=== PATIENT | female | born 1985 | race Caucasian/White ===

== ENCOUNTER 2017-09-27 15:17 | Emergency (ER) | payer OTHER ==
[~2017-09-27] VITALS: Ht 175.3 cm; Wt 136.4 kg
[~2017-09-27 15:17] MED LIST: MEDR150I; TRAM-453 PO; XRL15 PO
[2017-09-27 15:28] VITALS: TEMP 36.9; Ht 175.3 cm; Wt 136.4 kg
[2017-09-27] MEDS ORDERED: XRL20 PO (15:50)
[2017-09-27] MEDS ORDERED: SERT50TA PO (15:50)
[2017-09-27] MEDS ORDERED: OPTIRAY 320 IV PRN (16:00)
--- NOTE | 2017-09-27 16:07 | EMERGENCY ROOM VISIT NOTE ---
History First contact with patient: 15:39 Chief Complaint: OTHER COMPLAINT Stated Complaint: POSSIBLE BLOOD CLOT, REFERRED BY History of Present Illness The patient is a 32 year old female who presents to the Emergency Room with complaints of chest pain. The patient reports that she has had tenderness in the middle of her chest for over one year which worsened and became more frequent recently. She states that there is pain with certain movements and pushing on the area. It is typically intermittent but has become more constant over the past few weeks. She is concerned because of a history of blood clots. The patient reports factor V Leiden disorder and has a history of both blood clots in her legs and lungs. She takes Xarelto every day. She does report that in the past, she has had a pulmonary embolism while taking Coumadin. She also reports being more fatigued than normal recently. She contacted her primary care provider who recommended that she come here for a CT scan of her chest given her history. The patient denies any shortness of breath, cough or fevers. She is not a smoker. She denies recent travel or surgeries. Review of Systems A complete 10 point review of systems was reviewed with the patient with pertinent positives and negatives as per history of present illness. All else were negative. Past Medical/Surgical History Medical Problems: (1) Anxiety and depression (2) Heterozygous factor V Leiden mutation (3) Pulmonary embolism (4) Superficial thrombophlebitis Surgical Problems: (1) S/P wrist surgery Family History FH: pulmonary embolism BROTHER Phlebitis FATHER MOTHER Social History Smoking Status: Never Smoker Alcohol Use: none Drug Use: none Marital Status: Housing Status: lives with family Occupation Status: unemployed Current/Historical Medications Scheduled Rivaroxaban (Xarelto), 20 MG PO QPM Sertraline (Zoloft), 75 MG PO QAM Physical Exam Vital Signs Date Time Temp Pulse Resp B/P (MAP) Pulse Ox O2 Delivery O2 Flow Rate FiO2 09/27/17 18:14 80 18 138/96 100 Room Air 09/27/17 15:28 36.9 89 20 148/92 98 Room Air Physical Exam VITALS: Vitals are noted on the nurse's note and reviewed by myself. Vital signs stable. GENERAL: This is a 32-year-old female, in no acute distress, nondiaphoretic, well-developed well-nourished. SKIN: The skin was without rashes. EARS: External auditory canals clear, tympanic membranes pearly victoria without erythema or effusion bilaterally. EYES: Pupils equal round and reactive to light and accommodation. MOUTH: Mucous membranes moist. NECK: Supple without nuchal rigidity. HEART: Regular rate and rhythm without murmurs gallops or rubs. LUNGS: Clear to auscultation bilaterally without wheezes, rales or rhonchi. No retractions or accessory muscle use. MUSCULOSKELETAL: Slight tenderness to palpation along left sternal border. NEURO: Patient was alert and oriented to person place and time. Medical Decision & Procedures ER Provider Diagnostic Interpretation: CT ANGIOGRAM OF THE CHEST IMPRESSION: 1. There is no evidence of pulmonary embolus in the main, lobar, or segmental pulmonary arteries. 2. There is no airspace consolidation or pleural effusion. 3. A 9 mm groundglass nodule is again seen in the lingula. This is pathologically indeterminant, but unchanged from 02/04/2016. Given the lack of resolution from 2016 and ground-glass character a low-grade neoplasm could have this appearance. Follow-up with pulmonology or thoracic surgery is recommended. At a minimum, continued CT follow-up should be performed. Laboratory Results 09/27/17 16:25 Red Blood Count 4.28, Mean Corpuscular Volume 86.0, Mean Corpuscular Hemoglobin 30.1, Mean Corpuscular Hemoglobin Concent 35.1, Mean Platelet Volume 10.5, Neutrophils (%) (Auto) 62.0, Lymphocytes (%) (Auto) 27.6, Monocytes (%) (Auto) 7.9, Eosinophils (%) (Auto) 2.2, Basophils (%) (Auto) 0.3, Neutrophils # (Auto) 3.62, Lymphocytes # (Auto) 1.61, Monocytes # (Auto) 0.46, Eosinophils # (Auto) 0.13, Basophils # (Auto) 0.02 09/27/17 16:25 Test 09/27/17 16:25 White Blood Count 5.84 K/uL (4.8-10.8) Red Blood Count 4.28 M/uL (4.2-5.4) Hemoglobin 12.9 g/dL (12.0-16.0) Hematocrit 36.8 % (37-47) Mean Corpuscular Volume 86.0 fL (80-100) Mean Corpuscular Hemoglobin 30.1 pg (25-34) Mean Corpuscular Hemoglobin Concent 35.1 g/dl (32-36) Platelet Count 178 K/uL (130-400) Mean Platelet Volume 10.5 fL (7.4-10.4) Neutrophils (%) (Auto) 62.0 % Lymphocytes (%) (Auto) 27.6 % Monocytes (%) (Auto) 7.9 % Eosinophils (%) (Auto) 2.2 % Basophils (%) (Auto) 0.3 % Neutrophils # (Auto) 3.62 K/uL (1.4-6.5) Lymphocytes # (Auto) 1.61 K/uL (1.2-3.4) Monocytes # (Auto) 0.46 K/uL (0.11-0.59) Eosinophils # (Auto) 0.13 K/uL (0-0.5) Basophils # (Auto) 0.02 K/uL (0-0.2) RDW Standard Deviation 39.2 fL (36.4-46.3) RDW Coefficient of Variation 12.7 % (11.5-14.5) Immature Granulocyte % (Auto) 0.0 % Immature Granulocyte # (Auto) 0.00 K/uL (0.00-0.02) Anion Gap 4.0 mmol/L (3-11) Est Creatinine Clear Calc Drug Dose 146.6 ml/min Estimated GFR () 109.7 Estimated GFR (Non- 94.7 BUN/Creatinine Ratio 16.6 (10-20) Calcium Level 8.0 mg/dl (8.5-10.1) Total Bilirubin 0.2 mg/dl (0.2-1) Aspartate Amino Transf (AST/SGOT) 20 U/L (15-37) Alanine Aminotransferase (ALT/SGPT) 27 U/L (12-78) Alkaline Phosphatase 71 U/L (45-117) Troponin I < 0.015 ng/ml (0-0.045) Total Protein 6.4 gm/dl (6.4-8.2) Albumin 3.3 gm/dl (3.4-5.0) Globulin 3.1 gm/dl (2.5-4.0) Albumin/Globulin Ratio 1.1 (0.9-2) Thyroid Stimulating Hormone (TSH) 3.340 uIu/ml (0.300-4.500) Human Chorionic Gonadotropin, Qual NEG (NEG) ECG Indication: chest pain Rate (beats per minute): 81 Rhythm: normal sinus Findings: no acute ischemic change, no ectopy Comparison ECG Date: no prior available Medical Decision Differential diagnosis includes acute coronary syndrome, pulmonary embolism, pneumothorax, pericarditis, myocarditis, endocarditis, anxiety, musculoskeletal pain, GERD, costochondritis, pneumonia, among others. The patient is a 32-year-old female who presents today complaining of left sided chest pain which has been ongoing x 1 year but worsened recently. Labs revealed no leukocytosis, anemia, or concerning electrolyte abnormalities. Troponin was within normal limits. CT was performed and showed no evidence of pulmonary embolism, however there was a nodule which has persisted since her previous CT scan. Radiology recommended follow-up with pulmonology. Patient was given this information. 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 Based on the patient's presentation and work up, I feel the patient is stable for outpatient treatment. The patient was educated to return to the emergency department for any worsening of their current condition or new/concerning symptoms. She will follow up with pulmonology. Medication Reconcilliation Current Medication List: was personally reviewed by sd Blood Pressure Screening Patient's blood pressure: Normal blood pressure Impression Primary Impression: Left sided chest pain Departure Information Dispostion Home / Self-Care Condition GOOD Referrals Ngoc Cheng D.O. (PCP) Srinivasan Doherty M.D. Patient Instructions [facility] Additional Instructions For pain control, you can use the following [id number] medicines (if >12 yo): - Regular strength (325mg/tab) Tylenol (acetaminophen) 2 tabs every 4-6 hours as needed. Do not exceed 12 tablets in a 24 hour period. Avoid taking more than 4 grams (4000 mg) of Tylenol per day. This includes any other sources of acetaminophen you may take on a regular basis. - Regular strength (200 mg/tab) Advil (ibuprofen) 1-2 tabs every 4-6 hours as needed. Do not exceed a dose of 3200 mg per day. There was a small nodule on your CT scan. You will need to follow-up with pulmonology regarding this. You have been given the contact information for [facility] pulmonology, but if you would like to see [facility] you may contact Dr. Cheng to set this up. Contact Dr. Cheng to schedule follow up with her within 1-2 weeks. Return to the emergency department with any worsening or new/concerning symptoms.
[2017-09-27 16:41] LABS: BASO % 0.3 %; BASO ABS # 0.02 K/uL (0-0.2); EOS % 2.2 %; EOS ABS # 0.13 K/uL (0-0.5); HEMATOCRIT 36.8 % (37-47); HEMOGLOBIN 12.9 g/dL (12.0-16.0); LYMPH % 27.6 %; LYMPH ABS # 1.61 K/uL (1.2-3.4); MEAN CORPUSCULAR HEMOGLOBIN 30.1 pg (25-34); MEAN CORPUSCULAR HGB CONC 35.1 g/dl (32-36); MEAN PLATELET VOLUME 10.5 fL (7.4-10.4); MONO % 7.9 %; MONO ABS # 0.46 K/uL (0.11-0.59); NEUT ABS # 3.62 K/uL (1.4-6.5); PLATELET COUNT 178 K/uL (130-400); RED CELL DISTRIBUTION WIDTH CV 12.7 % (11.5-14.5); RED CELL DISTRIBUTION WIDTH SD 39.2 fL (36.4-46.3); WHITE BLOOD COUNT 5.84 K/uL (4.8-10.8)
[2017-09-27 17:01] LABS: ALBUMIN 3.3 gm/dl (3.4-5.0); ALT/SGPT 27 U/L (12-78); AST/SGOT 20 U/L (15-37); BLOOD UREA NITROGEN 14 mg/dl (7-18); CARBON DIOXIDE 29 mmol/L (21-32); CREATININE 0.82 mg/dl (0.60-1.20); GLUCOSE 83 mg/dl (70-99); POTASSIUM 3.8 mmol/L (3.5-5.1); SODIUM 139 mmol/L (136-145)
[2017-09-27 17:11] LABS: ALKALINE PHOSPHATASE 71 U/L (45-117); TOTAL PROTEIN 6.4 gm/dl (6.4-8.2)
--- NOTE | 2017-09-27 17:45 | DIAGNOSTIC IMAGING REPORT ---
CT ANGIOGRAM OF THE CHEST CLINICAL HISTORY: Atypical chest pain. COMPARISON STUDY: Chest CT dated 02/04/2016. TECHNIQUE: Following the IV administration of 96 cc of Optiray 320, CT angiogram of the chest was performed from the upper abdomen to the thoracic inlet utilizing the pulmonary embolus protocol. Images are reviewed in the axial, sagittal, and coronal planes. 3-D MIPS images are created and assessed. IV contrast was administered without complication. A dose lowering technique was utilized adhering to the principles of ALARA. CT DOSE: 628.47 mGy.cm FINDINGS: Thyroid: Imaged portions of the thyroid gland are normal in size and attenuation. Thoracic aorta: The thoracic aorta is normal in caliber and demonstrates standard 3-vessel arch anatomy. No dissection is seen. Pulmonary vasculature: The pulmonary trunk is normal in caliber. There are no filling defects identified in main, lobar, or segmental pulmonary branches to suggest pulmonary embolus. Heart: The heart is normal in size and configuration, and without pericardial effusion. Lungs and pleural spaces: A 9 mm groundglass nodule in the lingula seen on image #133 is unchanged. No airspace consolidation or pleural effusion is identified the trachea and central airways Are clear. Mediastinum: There is no mediastinal lymphadenopathy. Liliane: Clear. Axillae: There is no axillary lymphadenopathy. Upper abdomen: Partially visualized upper abdominal viscera is within normal limits. Skeletal structures: No lytic or blastic bony lesions are seen. IMPRESSION: 1. There is no evidence of pulmonary embolus in the main, lobar, or segmental pulmonary arteries. 2. There is no airspace consolidation or pleural effusion. 3. A 9 mm groundglass nodule is again seen in the lingula. This is pathologically indeterminant, but unchanged from 02/04/2016. Given the lack of resolution from 2016 and ground-glass character a low-grade neoplasm could have this appearance. Follow-up with pulmonology or thoracic surgery is recommended. At a minimum, continued CT follow-up should be performed. Electronically signed by: Thomas Samuels M.D. 09/27/2017 5:44 PM Dictated Date/Time: 09/27/2017 5:39 PM
[2017-09-27 18:14] VITALS: BP 138/96; PULSE 80; O2SAT 100
== END 2017-09-27 18:51 | disposition home or self-care (01) ==
LOC: C.EDB 15:18
DX: R07.9 Chest pain, unspecified (principal); F41.9 Anxiety disorder, unspecified; F32.9 Major depressive disorder, single episode, unspecified; D68.51 Activated protein C resistance; I26.99 Other pulmonary embolism without acute cor pulmonale

== ENCOUNTER 2019-03-13 07:35 | Inpatient (IN) ==
--- OUTSIDE RECORDS SUMMARY | 2019-03-13 07:39 | External Medical Summary | Continuity of Care Document ---
:1985 Author Name Mayra Lomeli Address Unavailable Unavailable , Care Team Providers Name Role Phone Edmundo HERNANDEZ Unavailable [email or web address] [email or web address] Assessed Problems:Pulmonary nodule, left Problems Morbid obesity, unspecified obesity type (278.01) (E66.01) Pulmonary nodule, left (793.11) (R91.1) Dysfunctional uterine bleeding (626.8) (N93.8) Thrombophlebitis of superficial veins of right lower e xtremity (451.0) (I80.01) Allergies and Adverse Reactions No Known Drug Allergies (Allergy) Medications Sertraline HCl - 50 MG Oral Tablet; TAKE 1 TABLET DAILY. 30 Tablet Bottle Refills: 0 HYDROcodone-Acetaminophen 5-325 MG Oral Tablet; TAKE 1 TABLET EVERY 6 HOURS NEEDED Refills: 0 Sertraline HCl - 25 MG Oral Tablet; Take 1 tablet daily 30 Tablet Bottle Refills: 0 Cyclobenzaprine HCl - 10 MG Oral Tablet; take 1 tablet at be dtime as needed Refills: 0 Xarelto 20 MG Oral Tablet; Take 1 tablet daily Refills: 0 Omeprazole 40 MG Oral Capsule Delayed Release; TAKE 1 CAPSUL E Daily Refills: 0 traMADol HCl - 50 MG Oral Tablet; TAKE 1 TABLET EVERY 6 HOUR S NEEDED Refills: 0 Procedures Procedures not documented Immunizations DTaP On: 01-Dec-2010 0:00 Lot #: [id number], [employer] Family History Unknown Family Member Family history of Arthritis (V17.7) Status: Active Comm ents: Family History Father Family history of Hypertension (V17.49) Status: Active Mother Family history of Hypertension (V17.49) Status: Active Family history of Breast Cancer (V16.3) Status: Active Grandmother Family history of Breast Cancer (V16.3) Status: Active Sister Family history of Cervical Cancer Status: Active Family history of Graves' Disease Status: Active Social History - Smoking Status Never smoker Interventions Discussion/[id number] female presents the office for new patient evaluation for left-sided 9 millimeters solitary ground-glass pulmonary nodule. he this has been stable since 02/2016. Images were reviewed personally as well as with Dr. Patel. She quite young without risk factors for lung cancer. Options include surgical excision versus serial CT per Fleischner guidelines up to 5 years for stability. She elected to watch with CT and this is appropriate. Next CT 02/2019 and follow up post testing to reviewresults. Plan of Treatment Planned Observations Planned Goals not documented Results No Known Results Results not documented Encounters Appointment; Suzy Wyatt PA-C 17-Oct-2017 7:30 Encounter Diagnosis: Problem not documented
[2019-03-13] MEDS ORDERED: OXYTOCIN 30 UNITS/500 ML BAG IV PRN (09:24)
[2019-03-13 09:46] LABS: Hematocrit (blood only) 32.1 % (37-47); Hemoglobin 11.1 g/dL (12.0-16.0); Mean Platelet Volume 10.7 fL (7.4-10.4); Platelet Count 149 K/uL (130-400); RDW Coefficient of Variation 13.4 % (11.5-14.5); RDW Standard Deviation 42.4 fL (36.4-46.3); Red Blood Count 3.69 M/uL (4.2-5.4); White Blood Count 5.91 K/uL (4.8-10.8)
[2019-03-13 09:54] LABS: Prothrombin Time 10.2 Seconds (9.0-12.0)
[2019-03-13 10:09] LABS: Mean Corpuscular Hgb Conc 34.6 g/dL (32-36)
[2019-03-13] MEDS: miSOPROStol 50 MCG TAB PO SCH ×2 (10:48→14:47)
[2019-03-13] MEDS ORDERED: DINOPROSTONE 10 MG INSERT PV ONE (21:44)
--- NOTE | 2019-03-13 23:18 | Labor Progress Brief Note ---
Date of Service March 13, 2019 Pt doing well received 2 doses of Cytotec FHR; CAT1 Ctx 2-5mins VE ; Ft/post Cervidil placed Results & Data Vital Signs (Past 12 Hours) Vital Signs Temp Pulse Resp BP 03/13/19 23:00 37.1 C 18 03/13/19 22:59 88 117/76 03/13/19 19:11 36.8 C 82 20 124/75 03/13/19 15:24 36.9 C 84 20 119/77 03/13/19 14:49 86 113/64 03/13/19 12:43 87 114/59 L
[2019-03-14] MEDS: miSOPROStol 50 MCG TAB PO SCH ×3 (08:01→18:00)
--- NOTE | 2019-03-14 10:45 | Obstetrical Progress Note ---
Date of Service March 14, 2019 Physical Exam Genitourinary: Manual OB Exam: + cervical dilation 1 cm, + cervical effacement 50% and + station high OB Exam Monitor Tracing: + external FHT monitor used, + external uterine monitor used and + category I Cervidil removed Will allow to shower continue with Cytotec vaginally for ripening Results & Data Vital Signs (Past 12 Hours) Vital Signs Temp Pulse Resp BP 03/14/19 07:24 36.7 C 03/14/19 07:23 80 122/77 03/14/19 03:04 37.0 C 03/14/19 02:58 82 124/79 03/13/19 23:00 37.1 C 03/13/19 22:59 88 117/76
--- NOTE | 2019-03-14 19:09 | Obstetrical Progress Note ---
Date of Service March 14, 2019 Physical Exam Genitourinary: Manual OB Exam: + cervical dilation 3 cm, + cervical effacement 60% and + station -2 OB Exam Monitor Tracing: + external FHT monitor used, + external uterine monitor used, + category I and + normal FHT variability Results & Data Vital Signs (Past 12 Hours) Vital Signs Temp Pulse Resp BP 03/14/19 18:58 101 H 131/84 03/14/19 16:29 37.0 C 88 20 108/69 03/14/19 11:31 88 110/80 03/14/19 07:24 36.7 C 20 03/14/19 07:23 80 122/77
[2019-03-14 19:38] LABS: Hematocrit (blood only) 33.4 % (37-47); Hemoglobin 11.3 g/dL (12.0-16.0); Mean Corpuscular Volume 87.2 fL (80-100); Mean Platelet Volume 11.1 fL (7.4-10.4); Platelet Count 158 K/uL (130-400); RDW Coefficient of Variation 13.2 % (11.5-14.5); RDW Standard Deviation 42.2 fL (36.4-46.3); Red Blood Count 3.83 M/uL (4.2-5.4); White Blood Count 7.64 K/uL (4.8-10.8)
[2019-03-14 19:43] LABS: Mean Corpuscular Hgb Conc 33.8 g/dL (32-36)
[2019-03-14 19:48] LABS: Partial Thromboplastin Ratio 0.9; Partial Thromboplastin Time 25.6 Seconds (21.0-31.0); Prothrombin Time 10.1 Seconds (9.0-12.0)
[2019-03-14] MEDS ORDERED: OXYTOCIN 30 UNITS/500 ML BAG IV PRN (23:21)
--- NOTE | 2019-03-14 23:21 | Obstetrical Progress Note ---
Date of Service March 14, 2019 Physical Exam Genitourinary: Manual OB Exam: + cervical dilation 4 cm, + cervical effacement 70% and + station -2 OB Exam Monitor Tracing: + external FHT monitor used, + external uterine monitor used, + category I and + normal FHT variability will star Oxytocin to augment contractions Results & Data Vital Signs (Past 12 Hours) Vital Signs Temp Pulse Resp BP 03/14/19 22:10 64 126/84 03/14/19 22:09 36.9 C 18 03/14/19 19:10 37.3 C 18 03/14/19 18:58 101 H 131/84 03/14/19 16:29 37.0 C 88 20 108/69 03/14/19 11:31 88 110/80
[2019-03-15] MEDS: LACTATED RINGER'S 1,000 ML IV PRN ×3 (00:12→08:35)
[2019-03-15] MEDS ORDERED: BUPIVACAINE 0.25% 30 ML VIAL ONE (01:07)
[2019-03-15] MEDS ORDERED: ePHEDrine sulfate 50 MG/ML AMP ONE (01:07)
[2019-03-15] MEDS ORDERED: fentaNYL 2MCG/ML ROPIV 1.25MG/ML 100 ML BAG EPI ONE (01:08)
[2019-03-15] MEDS ORDERED: fentaNYL citrate 100 MCG/2 ML VIAL ONE (01:08)
[2019-03-15] MEDS ORDERED: NALOXONE HCL 1 MG in SODIUM CHLORIDE 0.9% 1000ML 1,000 ML IV PRN (01:27)
[2019-03-15] MEDS ORDERED: ONDANSETRON INJ 2 MG/ML 2 ML VIAL IV PRN (01:27)
[2019-03-15] MEDS ORDERED: DiphenhydrAMINE HCL 50 MG/ML VIAL IV PRN (01:27)
[2019-03-15] MEDS ORDERED: NALBUPHINE HCL INJ 10 MG/ML AMP IV PRN (01:27)
[2019-03-15] MEDS ORDERED: NALOXONE HCL 0.4 MG/1 ML VIAL/CARP IV PRN (01:27)
[2019-03-15] MEDS ORDERED: fentaNYL 2MCG/ML ROPIV 1.25MG/ML 100 ML BAG EPI PRN (01:27)
[2019-03-15] MEDS ORDERED: ePHEDrine sulfate 50 MG/ML AMP IV PRN (01:27)
--- NOTE | 2019-03-15 01:32 | Anesthesiology Consultation ---
Date of Service March 15, 2019 Assessment & Plan Chart Review Chart Review: Patient NOT seen in Pre Admission Testing and Acceptable Risk for Labor Epidural Consults Requested none ASA ASA3 Proposed Anesthesia Anesthesia Type: Labor Epidural and CSE Risk / Benefits Reviewed With: PT / POA / Parent / Guardian, Accepts Plan and Informed Consent Obtained History Height/Weight Height: 5 ft 9 in Weight: 135.171 kg Allergies Allergy/AdvReac Type Severity Reaction Status Date / Time No Known Allergies Allergy Verified 09/27/17 15:49 Medications Home Medications Medication Instructions Recorded Confirmed Last Taken heparin (porcine) 20,000 unit SUBCUT Q12H 03/13/19 03/13/19 03/13/19 05:30 vit-iron fum-folic ac 1 tab PO DAILY 03/13/19 03/13/19 03/12/19 08:00 [ Vitamin] sertraline [Zoloft] 75 mg PO DAILY 03/13/19 03/13/19 03/06/19 09:00 Active Medications Generic Name Dose Route Start Last Admin Trade Name Radhamesq PRN Reason Stop Dose Admin Lactated Ringer's 1,000 mls @ 125 mls/hr 03/13/19 09:24 03/15/19 01:05 Lr IV 03/15/19 09:23 999 mls/hr .Q8H PRN Infusion L&D Protocol Protocol Oxytocin 30 units in 500 mls @ 1 mls/hr 03/14/19 23:21 03/15/19 01:11 Pitocin IV 03/16/19 23:20 0.06 units/hr .Q24H PRN 1 mls/hr Labor Induction/Augmentation Titration Protocol 0.06 UNITS/HR Misoprostol 50 mcg 03/13/19 11:00 03/14/19 18:00 Cytotec PO 04/12/19 10:59 Not Given Q4H CHIKI NPO Date Last Intake of Fluids: 03/14/19 Time Last Intake of Fluids: 23:00 Date Last Intake of Solids: 03/14/19 Time Last Intake of Solids: 13:00 Past Medical History Medical History Factor V Leiden Herniated lumbar intervertebral disc History of pulmonary embolus (PE) Morbid obesity Exercise / Class Metabolic Activity II 4-5 Yardwork/Stairs/Walk up hill Past Surgical History Surgical History History of surgery on wrist Past Anesthesia History No Hx of Anesthesia Complications and No Family Hx of Anesthesia Complications History of PONV No Hx of PONV and Hx of Motion Sickness Social History Smoking Status: Never smoker Do You Dip or Chew Tobacco: No Hx Alcohol Use: No Hx Substance Use: No substance use type: does not use Review of Systems no chest pain or sob Physical Exam Vital Signs Last Vital Signs Temp 36.9 C 03/14/19 22:09 Pulse 80 03/15/19 01:35 Resp 18 03/14/19 22:09 BP 116/73 03/15/19 01:16 Pulse Ox 98 03/15/19 01:35 ENMT Mouth: no TMJ abnormality Thyromental Distance: > or= 3.5 Finger Breadths Mallampati Class: II Neck normal visual inspection Respiratory normal respiratory effort Auscultation: lungs clear to auscultation bilaterally Cardiovascular Rate/Rhythm: regular rate and regular rhythm Musculoskeletal Spine: normal cervical ROM Neurologic moves all extremities Psychiatric Orientation: alert and oriented x 3 Testing Laboratory Results 03/14/19 19:22 PT 10.1 Seconds (9.0-12.0) 03/14/19 19:22 INR 1.0 (0.9-1.1) 03/14/19 19:22 APTT 25.6 Seconds (21.0-31.0) 03/14/19 19:22
--- NOTE | 2019-03-15 07:41 | Obstetrical Progress Note ---
Date of Service March 15, 2019 Physical Exam Genitourinary: OB Exam Abdomen: + vertex Manual OB Exam: + cervical dilation 5 cm, + cervical effacement 90%, + station -2 and + amniotic fluid clear OB Exam Monitor Tracing: + external FHT monitor used, + external uterine monitor used, + category I and + normal FHT variability AROM clear fluid Continue Oxytocin Results & Data Vital Signs (Past 12 Hours) Vital Signs Temp Pulse Resp BP Pulse Ox 03/15/19 07:35 68 98 03/15/19 07:33 72 104/71 03/15/19 07:30 82 100 03/15/19 07:25 76 94 03/15/19 07:20 81 92 03/15/19 07:17 77 110/79 03/15/19 07:15 80 99 03/15/19 07:10 79 100 03/15/19 07:05 82 99 03/15/19 07:02 85 110/82 03/15/19 07:00 80 94 03/15/19 06:55 70 94 03/15/19 06:54 72 94 03/15/19 06:50 69 94 03/15/19 06:49 76 94 03/15/19 06:45 70 95 03/15/19 06:40 84 93 03/15/19 06:35 71 97 03/15/19 06:34 69 108/73 03/15/19 06:31 72 94 03/15/19 06:30 72 94 03/15/19 06:26 68 94 03/15/19 06:25 78 95 03/15/19 06:20 78 93 03/15/19 06:19 76 94 03/15/19 06:15 75 93 03/15/19 06:10 76 93 03/15/19 06:06 74 94 03/15/19 06:05 74 94 03/15/19 06:03 69 107/63 03/15/19 06:01 75 94 03/15/19 06:00 76 95 03/15/19 05:55 82 94 03/15/19 05:51 77 94 03/15/19 05:50 78 94 03/15/19 05:46 78 93 03/15/19 05:45 85 95 03/15/19 05:41 82 94 03/15/19 05:40 81 94 03/15/19 05:35 83 95 03/15/19 05:33 78 93 03/15/19 05:30 85 94 03/15/19 05:26 76 92 03/15/19 05:25 80 93 03/15/19 05:20 72 94 03/15/19 05:18 82 113/66 03/15/19 05:15 78 93 03/15/19 05:10 71 93 03/15/19 05:05 77 93 03/15/19 05:00 76 93 03/15/19 04:55 71 93 03/15/19 04:52 77 94 03/15/19 04:50 75 94 03/15/19 04:46 72 94 03/15/19 04:45 71 95 03/15/19 04:40 72 18 95 03/15/19 04:35 77 98 03/15/19 04:34 82 112/59 L 03/15/19 04:30 88 98 03/15/19 04:28 93 H 92 03/15/19 04:25 100 H 95 03/15/19 04:20 87 93 03/15/19 04:17 82 104/60 03/15/19 04:16 76 94 03/15/19 04:15 83 93 03/15/19 04:10 75 93 03/15/19 04:05 85 94 03/15/19 04:01 16 03/15/19 04:00 80 93 03/15/19 03:55 76 93 03/15/19 03:50 88 93 03/15/19 03:48 16 03/15/19 03:47 83 107/64 03/15/19 03:45 90 93 03/15/19 03:40 73 92 03/15/19 03:35 81 94 03/15/19 03:34 78 109/65 03/15/19 03:30 81 93 03/15/19 03:25 85 93 03/15/19 03:20 85 92 03/15/19 03:19 80 103/63 03/15/19 03:15 85 93 03/15/19 03:10 82 93 03/15/19 03:05 73 93 03/15/19 03:02 90 111/71 03/15/19 03:01 18 03/15/19 03:00 70 18 92 03/15/19 02:55 75 93 03/15/19 02:50 80 94 03/15/19 02:47 76 109/63 03/15/19 02:45 77 94 03/15/19 02:40 68 94 03/15/19 02:38 71 94 03/15/19 02:35 74 97 03/15/19 02:34 74 111/65 03/15/19 02:31 77 94 03/15/19 02:30 85 96 03/15/19 02:25 66 94 03/15/19 02:20 67 95 03/15/19 02:17 75 106/73 03/15/19 02:15 87 97 03/15/19 02:10 81 97 03/15/19 02:09 70 94 03/15/19 02:05 70 96 03/15/19 02:02 77 104/75 03/15/19 02:01 36.9 C 18 03/15/19 02:00 76 98 03/15/19 01:59 81 117/76 03/15/19 01:57 83 113/73 03/15/19 01:56 18 03/15/19 01:55 75 108/69 98 03/15/19 01:54 77 105/71 03/15/19 01:51 75 18 116/76 03/15/19 01:50 86 107/73 98 03/15/19 01:49 88 94 03/15/19 01:45 80 18 100 03/15/19 01:43 18 03/15/19 01:42 90 92 03/15/19 01:40 84 100 03/15/19 01:35 80 98 03/15/19 01:30 86 99 03/15/19 01:25 80 98 03/15/19 01:20 90 99 03/15/19 01:16 76 116/73 03/15/19 01:15 77 98 03/15/19 01:10 80 98 03/15/19 01:05 80 99 03/15/19 00:16 88 118/80 03/14/19 22:10 64 126/84 03/14/19 22:09 36.9 C 18
--- NOTE | 2019-03-15 10:28 | Labor Progress Brief Note ---
Date of Service March 15, 2019 Pt doing well FHR; Poor quality Pitocin d/sita Ctx irreg VE: 10/100/0 scalp placed will start pushing when she feel pressure Results & Data Vital Signs (Past 12 Hours) Vital Signs Temp Pulse Resp BP Pulse Ox 03/15/19 10:20 77 100 03/15/19 10:18 98 H 91 03/15/19 10:15 87 100 03/15/19 10:10 86 100 03/15/19 10:09 96 H 94 03/15/19 10:05 81 100 03/15/19 10:04 84 91 03/15/19 10:00 81 100 03/15/19 09:59 90 93 03/15/19 09:55 70 100 03/15/19 09:53 80 93 03/15/19 09:50 65 98 03/15/19 09:46 86 90 03/15/19 09:45 88 94 03/15/19 09:41 91 H 93 03/15/19 09:40 87 95 03/15/19 09:35 69 97 03/15/19 09:30 68 99 03/15/19 09:25 77 99 03/15/19 09:24 78 91 03/15/19 09:20 77 99 03/15/19 09:16 82 91 03/15/19 09:15 81 99 03/15/19 09:10 76 100 03/15/19 09:05 72 99 03/15/19 09:04 80 92 03/15/19 09:00 78 100 03/15/19 08:57 75 88 L 03/15/19 08:55 76 98 03/15/19 08:52 73 92 03/15/19 08:50 74 100 03/15/19 08:48 71 128/76 03/15/19 08:45 73 98 03/15/19 08:40 80 100 03/15/19 08:39 74 92 03/15/19 08:35 82 100 03/15/19 08:34 75 102/62 03/15/19 08:33 77 88 L 03/15/19 08:30 65 100 03/15/19 08:26 82 92 03/15/19 08:25 79 100 03/15/19 08:20 83 100 03/15/19 08:18 84 106/64 03/15/19 08:15 80 100 03/15/19 08:10 76 99 03/15/19 08:05 81 99 03/15/19 08:04 75 96/53 L 03/15/19 08:00 76 100 03/15/19 07:56 82 92 03/15/19 07:55 77 100 03/15/19 07:50 76 100 03/15/19 07:47 85 112/78 03/15/19 07:46 97 H 93 03/15/19 07:45 77 98 03/15/19 07:40 81 99 03/15/19 07:35 68 98 03/15/19 07:33 72 104/71 03/15/19 07:30 82 100 03/15/19 07:25 76 94 03/15/19 07:20 81 92 03/15/19 07:17 77 110/79 03/15/19 07:15 80 99 03/15/19 07:10 79 100 03/15/19 07:05 82 99 03/15/19 07:02 85 110/82 03/15/19 07:00 80 94 03/15/19 06:55 70 94 03/15/19 06:54 72 94 03/15/19 06:50 69 94 03/15/19 06:49 76 94 03/15/19 06:45 70 95 03/15/19 06:40 84 93 03/15/19 06:35 71 97 03/15/19 06:34 69 108/73 03/15/19 06:31 72 94 03/15/19 06:30 72 94 03/15/19 06:26 68 94 03/15/19 06:25 78 95 03/15/19 06:20 78 93 03/15/19 06:19 76 94 03/15/19 06:15 75 93 03/15/19 06:10 76 93 03/15/19 06:06 74 94 03/15/19 06:05 74 94 03/15/19 06:03 69 107/63 03/15/19 06:01 75 94 03/15/19 06:00 76 95 03/15/19 05:55 82 94 03/15/19 05:51 77 94 03/15/19 05:50 78 94 03/15/19 05:46 78 93 03/15/19 05:45 85 95 03/15/19 05:41 82 94 03/15/19 05:40 81 94 03/15/19 05:35 83 95 03/15/19 05:33 78 93 03/15/19 05:30 85 94 03/15/19 05:26 76 92 03/15/19 05:25 80 93 03/15/19 05:20 72 94 03/15/19 05:18 82 113/66 03/15/19 05:15 78 93 03/15/19 05:10 71 93 03/15/19 05:05 77 93 03/15/19 05:00 76 93 03/15/19 04:55 71 93 03/15/19 04:52 77 94 03/15/19 04:50 75 94 03/15/19 04:46 72 94 03/15/19 04:45 71 95 03/15/19 04:40 72 18 95 03/15/19 04:35 77 98 03/15/19 04:34 82 112/59 L 03/15/19 04:30 88 98 03/15/19 04:28 93 H 92 03/15/19 04:25 100 H 95 03/15/19 04:20 87 93 03/15/19 04:17 82 104/60 03/15/19 04:16 76 94 03/15/19 04:15 83 93 03/15/19 04:10 75 93 03/15/19 04:05 85 94 03/15/19 04:01 16 03/15/19 04:00 80 93 03/15/19 03:55 76 93 03/15/19 03:50 88 93 03/15/19 03:48 16 03/15/19 03:47 83 107/64 03/15/19 03:45 90 93 03/15/19 03:40 73 92 03/15/19 03:35 81 94 03/15/19 03:34 78 109/65 03/15/19 03:30 81 93 03/15/19 03:25 85 93 03/15/19 03:20 85 92 03/15/19 03:19 80 103/63 03/15/19 03:15 85 93 03/15/19 03:10 82 93 03/15/19 03:05 73 93 03/15/19 03:02 90 111/71 03/15/19 03:01 18 03/15/19 03:00 70 18 92 03/15/19 02:55 75 93 03/15/19 02:50 80 94 03/15/19 02:47 76 109/63 03/15/19 02:45 77 94 03/15/19 02:40 68 94 03/15/19 02:38 71 94 03/15/19 02:35 74 97 03/15/19 02:34 74 111/65 03/15/19 02:31 77 94 03/15/19 02:30 85 96 03/15/19 02:25 66 94 03/15/19 02:20 67 95 03/15/19 02:17 75 106/73 03/15/19 02:15 87 97 03/15/19 02:10 81 97 03/15/19 02:09 70 94 03/15/19 02:05 70 96 03/15/19 02:02 77 104/75 03/15/19 02:01 36.9 C 18 03/15/19 02:00 76 98 03/15/19 01:59 81 117/76 03/15/19 01:57 83 113/73 03/15/19 01:56 18 03/15/19 01:55 75 108/69 98 03/15/19 01:54 77 105/71 03/15/19 01:51 75 18 116/76 03/15/19 01:50 86 107/73 98 03/15/19 01:49 88 94 03/15/19 01:45 80 18 100 03/15/19 01:43 18 03/15/19 01:42 90 92 03/15/19 01:40 84 100 03/15/19 01:35 80 98 03/15/19 01:30 86 99 03/15/19 01:25 80 98 03/15/19 01:20 90 99 03/15/19 01:16 76 116/73 03/15/19 01:15 77 98 03/15/19 01:10 80 98 03/15/19 01:05 80 99 03/15/19 00:16 88 118/80
[2019-03-15] MEDS ORDERED: METHYLERGONOVINE MALEATE 0.2 MG/ML AMP ONE (11:16)
[2019-03-15] MEDS ORDERED: ACETAMINOPHEN 325 MG TAB PO PRN (11:40)
[2019-03-15] MEDS ORDERED: BENZOCAINE 20% AER SPR 82.5 GM CAN EXT PRN (11:40)
[2019-03-15] MEDS ORDERED: DIPHTHERIA/TETANUS/PERTUSSIS 0.5 ML SYR/VIAL IM ONE (11:40)
[2019-03-15] MEDS ORDERED: OXYTOCIN 30 UNITS/500 ML BAG IV PRN (11:40)
[2019-03-15] MEDS ORDERED: SUPERCREAM 0.870% 15 GM JAR EXT PRN (11:40)
[2019-03-15] MEDS ORDERED: miSOPROStol 200 MCG TAB PR ONE (11:40)
[2019-03-15] MEDS ORDERED: HYDROCORTISONE ACETATE 25 MG SUPP PR PRN (11:40)
[2019-03-15] MEDS ORDERED: BISACODYL 10 MG SUPP PR PRN (11:40)
[2019-03-15] MEDS ORDERED: METHYLERGONOVINE MALEATE 0.2 MG/ML AMP IM ONE (11:40)
--- NOTE | 2019-03-15 13:06 | Anesthesia Procedure Note ---
Date of Service March 15, 2019 Anesthesia Post Epidural Note Vital Signs Vital Signs: Temp Pulse Resp BP Pulse Ox 37.1 C 74 18 103/56 L 80 L 03/15/19 11:30 03/15/19 12:47 03/15/19 12:15 03/15/19 12:47 03/15/19 11:10 Notes Mental Status: alert / awake / arousable and participated in evaluation Nausea / Vomiting: adequately controlled Pain: adequately controlled Airway Patency, RR, SpO2: stable & adequate BP & HR: stable & adequate Hydration State: stable & adequate Neuraxial Anesthesia: was administered and sensory block is resolving Anesthetic Complications: no major complications apparent Epidural: Removed without complications and With tip intact
[2019-03-15] MEDS: IBUPROFEN 600 MG TAB PO PRN ×2 (13:36→23:12)
[2019-03-15] MEDS: RIVAROXABAN 20 MG TAB PO SCH (19:19)
[2019-03-15] MEDS: DOCUSATE SODIUM 100 MG CAP PO SCH (20:09)
--- NOTE | 2019-03-15 23:05 | Delivery Summary ---
DATE OF OPERATION: 03/15/2019 DELIVERY NOTE The patient delivered a live male in left occiput anterior presentation. There was nuchal cord which was easily reduced. Infant was delivered. Cord was clamped and cut after 1 minute. was placed on mother's abdomen. Cord blood was obtained. Placenta was spontaneously delivered. Inspection of the placenta shows a normal gross looking placenta. The patient's weight is pending. Apgars 7 and 9. Inspection of the perineum shows a right paraurethral tear which was repaired with 3-0 Vicryl. Rest of the perineum was unremarkable. Estimated blood loss was 500 mL. All instruments were removed from the vagina and accounted for x2 including sponges, needles and retractors. Baby and mother are doing well in recovery. I attest to the content of the Intraoperative Record and any orders documented therein. Any exception s are noted below.
[2019-03-16 06:46] LABS: Hematocrit (blood only) 32.1 % (37-47); Hemoglobin 10.9 g/dL (12.0-16.0); Mean Corpuscular Volume 87.9 fL (80-100); Mean Platelet Volume 10.9 fL (7.4-10.4); Platelet Count 107 K/uL (130-400); RDW Coefficient of Variation 13.3 % (11.5-14.5); RDW Standard Deviation 42.7 fL (36.4-46.3); Red Blood Count 3.65 M/uL (4.2-5.4); White Blood Count 7.44 K/uL (4.8-10.8)
[2019-03-16] MEDS: DOCUSATE SODIUM 100 MG CAP PO SCH ×2 (08:07→20:09)
[2019-03-16] MEDS: PRENATAL VITAMIN 1 TAB PO SCH (08:07)
[2019-03-16] MEDS: IBUPROFEN 600 MG TAB PO PRN ×3 (08:07→20:09)
[2019-03-16] MEDS: FERROUS SULFATE 325 MG TAB PO SCH (08:08)
--- NOTE | 2019-03-16 12:11 | Obstetrical Progress Note ---
Date of Service March 16, 2019 Assessment & Plan (1) normal course: PPD #1 Pt doing well antiicpate disch tomorrow Subjective Ambulation: ambulating normally Voiding: no voiding problems Passing Gas:: Yes Diet Tolerance:: regular diet Lochia:: Small Feeding Type:: breast feeding Review of Systems All systems reviewed & are unremarkable except as noted in HPI & below Physical Exam Constitutional WD/WN, vitals as above well developed and well nourished Eyes PERRL, conjunctivae normal, anicteric sclerae Neck trachea midline, no thyromegaly Respiratory normal respiratory effort, lungs clear to auscultation Auscultation: no crackles, no rales and no wheezes Cardiovascular RRR, no murmur, no edema Gastrointestinal (Abdomen) normal bowel sounds, soft, nontender, no hepatosplenomegaly Uterus is below umbilicus Musculoskeletal no cyanosis or clubbing, extremities motor strength 5/5 Skin no rashes, warm and dry Neurologic patellar DTR's 2+ bilat, sensation intact Psychiatric A+Ox3, euthymic affect Genitourinary normal external appearance Results & Data Vital Signs (Past 12 Hours) Vital Signs Temp Pulse Resp BP Pulse Ox 03/16/19 08:45 36.9 C 73 17 115/81 99 03/16/19 04:24 36.5 C 80 16 105/70
[2019-03-16] MEDS: RIVAROXABAN 20 MG TAB PO SCH (16:00)
[2019-03-16] MEDS ORDERED: BISACODYL 5 MG TABEC PO SCH (20:00)
--- NOTE | 2019-03-17 03:13 | History and Physical Report ---
DATE OF ADMISSION: 03/13/2019 HISTORY OF PRESENT ILLNESS: The patient is a 33-year-old G3, P1, due date was 03/20/2019 making her 39 weeks on 03/13/2019 when she was admitted. The patient was admitted for induction of labor. Her was complicated by history of thrombophilia. The patient had had a history of pulmonary emboli in the past. In this , her recommendation by [facility] was to have patient induced at 39 weeks. The patient received anticoagulation therapy through , was on heparin for anticoagulation on arrival for admission. Her was also complicated by history of obesity, BMI was 44.1. LABS: Blood type B positive, antibody negative, rubella immune, GBS negative. PAST MEDICAL HISTORY: History of factor V Leiden, history of pulmonary emboli, history of lumbar disc disorder. PAST SURGICAL HISTORY: History of left wrist ganglion removal and herniated lumbosacral disorder. FAMILY HISTORY: Noncontributory. SOCIAL HISTORY: The patient denies tobacco, drug or alcohol use. PHYSICAL EXAMINATION: GENERAL: Well-developed, well-nourished white female in no acute distress. HEART: S1, S2, regular rhythm and rate. LUNGS: Clear to auscultation bilaterally. ABDOMEN: Gravid. EXTREMITIES: No cyanosis, clubbing, edema. PELVIC: On admission is as follows: Cervix is closed. Bedside ultrasound shows cephalic presentation. ASSESSMENT AND PLAN: A 33-year-old G3, P1 at 39 weeks' gestation, here for induction of labor because of a history thrombotic disease. The patient has a factor V Leiden and has had pulmonary embolism in the past, presented here for induction of labor. She is stable on heparin. [facility]
[2019-03-17] MEDS: IBUPROFEN 600 MG TAB PO PRN ×2 (04:10→08:36)
[2019-03-17 06:56] LABS: Hematocrit (blood only) 30.2 % (37-47); Hemoglobin 10.4 g/dL (12.0-16.0)
[2019-03-17] MEDS: PRENATAL VITAMIN 1 TAB PO SCH (08:30)
[2019-03-17] MEDS: FERROUS SULFATE 325 MG TAB PO SCH (08:30)
[2019-03-17] MEDS: DOCUSATE SODIUM 100 MG CAP PO SCH (08:30)
--- NOTE | 2019-03-17 09:36 | Obstetrical Progress Note ---
Date of Service March 17, 2019 Subjective doing well ploanning for discharge today Physical Exam Constitutional: WD/WN, vitals as above comfortable Genitourinary: fundus firm no edema for discharge Results & Data Vital Signs (Past 12 Hours) Vital Signs Temp Pulse Resp BP Pulse Ox 03/16/19 23:14 36.7 C 77 18 117/82 100 Laboratory Results Laboratory Results - last 72 hr 03/14/19 03/14/19 03/16/19 19:22 19:22 06:15 WBC 7.64 7.44 RBC 3.83 L 3.65 L Hgb 11.3 L 10.9 L Hct 33.4 L 32.1 L MCV 87.2 87.9 MCH 29.5 29.9 MCHC 33.8 34.0 RDW Std Deviation 42.2 42.7 RDW Coeff of Candy 13.2 13.3 Plt Count 158 107 L MPV 11.1 H 10.9 H PT 10.1 INR 1.0 APTT 25.6 PTT Ratio 0.9 03/17/19 06:34 WBC RBC Hgb 10.4 L Hct 30.2 L MCV MCH MCHC RDW Std Deviation RDW Coeff of Candy Plt Count MPV PT INR APTT PTT Ratio
== END 2019-03-17 11:47 | disposition home or self-care (01) | DRG 806 ==
LOC: 4S1 07:35 → 4S2 03-15 15:20

== ENCOUNTER 2020-09-06 07:49 | Inpatient (IN) ==
[2020-09-06] MEDS ORDERED: OXYTOCIN 30 UNITS/500 ML BAG IV PRN ×3 (08:41→22:42)
[2020-09-06 09:08] LABS: Hematocrit (blood only) 31.6 % (37-47); Hemoglobin 10.8 g/dL (12.0-16.0); Mean Corpuscular Hemoglobin 28.1 pg (25-34); Mean Corpuscular Hgb Conc 34.2 g/dL (32-36); Mean Corpuscular Volume 82.1 fL (80-100); Mean Platelet Volume 11.3 fL (7.4-10.4); Platelet Count 185 K/uL (130-400); RDW Coefficient of Variation 13.6 % (11.5-14.5); RDW Standard Deviation 40.9 fL (36.4-46.3); Red Blood Count 3.85 M/uL (4.2-5.4); White Blood Count 8.49 K/uL (4.8-10.8)
[2020-09-06] MEDS: LACTATED RINGER'S 1,000 ML IV PRN ×3 (09:17→16:11)
[2020-09-06 09:25] LABS: Partial Thromboplastin Ratio 0.9; Partial Thromboplastin Time 25.1 Seconds (21.0-31.0)
--- NOTE | 2020-09-06 09:49 | Labor Progress Brief Note ---
Date of Service September 06, 2020 Subjective Admitted for IOL at 39wk for FVL and h/o PE on heparin anticoagulation. Last dose yesterday AM; didn't get home from having rodriguez placed until after midnight so didn't take last night's dose. Rodriguez came out spontaneously and early after being placed. Assessment & Plan (1) Anticoagulated on heparin: Stopped now, will use LIANE/SCDs. (2) Obesity affecting in third trimester: IOL for h/o PE and anticoagulation. Pitocin to begin. Admission and Anticipated Discharge Date Admission Date: September 06, 2020 Physical Exam Physical Exam: /-2 FHT Cat 1 [place] mostly quiet EFW 7-8 Results & Data ([facility]) Vital Signs (Past 12 Hours) Vital Signs Temp Pulse Resp BP 09/06/20 09:11 103 H 115/70 09/06/20 08:00 98.2 F 120 H 18 130/67 09/06/20 07:58 98.2 F 120 H 18 130/67 Coding Level of Care Code None Diagnoses Anticoagulated on heparin Z79.01 Obesity affecting in third trimester O99.213
[2020-09-06] MEDS ORDERED: BUPIVACAINE 0.25% 30 ML VIAL ONE (12:14)
[2020-09-06] MEDS ORDERED: SODIUM CHLORIDE 0.9% INJ 10 ML VIAL ONE (12:14)
[2020-09-06] MEDS ORDERED: fentaNYL citrate 100 MCG/2 ML VIAL ONE (12:14)
[2020-09-06] MEDS ORDERED: ePHEDrine sulfate 50 MG/ML AMP ONE (12:14)
[2020-09-06] MEDS ORDERED: fentaNYL 2MCG/ML ROPIVACAINE 1.25MG/ML 100 ML BAG EPI ONE (12:15)
--- NOTE | 2020-09-06 12:17 | Labor Progress Brief Note ---
Date of Service September 06, 2020 Subjective Feeling only mild cramps, +FM. Still smiling when I enter the room. Assessment & Plan (1) Obesity affecting in third trimester: Patient with IOL and so far no cervical change, just becoming crampy. Recommended AROM but patient prefers to get epidural first; will begin bolus and epidural process, and RN to notify me when patient gets comfortable so I can return to rupture her membranes. Admission and Anticipated Discharge Date Admission Date: September 06, 2020 Physical Exam Physical Exam: Cervix unchanged, membranes intact. FHT Cat 1 [place] Q4 Pit @ 9 Results & Data ([facility]) Vital Signs (Past 12 Hours) Vital Signs Temp Pulse Resp BP Pulse Ox 09/06/20 12:13 92 H 120/77 09/06/20 12:12 96 H 100 09/06/20 11:11 97 H 111/67 09/06/20 10:11 106 H 119/62 09/06/20 09:11 103 H 115/70 09/06/20 08:00 98.2 F 120 H 18 130/67 09/06/20 07:58 98.2 F 120 H 18 130/67 Coding Level of Care Code None Diagnoses Obesity affecting in third trimester O99.213
[2020-09-06] MEDS ORDERED: diphenhydrAMINE 50 MG/ML VIAL IV PRN (12:33)
[2020-09-06] MEDS ORDERED: fentaNYL 2MCG/ML ROPIVACAINE 1.25MG/ML 100 ML BAG EPI PRN (12:33)
[2020-09-06] MEDS ORDERED: NALOXONE HCL 1 MG in SODIUM CHLORIDE 0.9% 1000ML 1,000 ML IV PRN (12:33)
[2020-09-06] MEDS ORDERED: ONDANSETRON INJ 2 MG/ML 2 ML VIAL IV PRN (12:33)
[2020-09-06] MEDS ORDERED: NALOXONE HCL 0.4 MG/1 ML VIAL/CARP IV PRN (12:33)
--- NOTE | 2020-09-06 12:47 | Anesthesiology Consultation ---
Date of Service September 06, 2020 Assessment & Plan Chart Review Chart Review: Patient NOT seen in Pre Admission Testing and Acceptable Risk for Labor Epidural Consults Requested none ASA ASA3 Proposed Anesthesia Anesthesia Type: Labor Epidural and CSE Risk / Benefits Reviewed With: PT / POA / Parent / Guardian, Accepts Plan and Informed Consent Obtained History Height/Weight Height: 5 ft 9 in Weight: 139.706 kg Allergies Allergy/AdvReac Type Severity Reaction Status Date / Time No Known Drug Allergies Allergy Unknown Verified 09/06/20 08:01 Medications Home Medications Medication Instructions Recorded Confirmed Last Taken prenat.vits,ayala,kmm-fcyd-oyatv 1 tab PO DAILY 02/27/20 09/06/20 09/05/20 10:00 breast pump #1 ea 06/23/20 09/01/20 Unknown insulin syringes (disposable) 1 mL #100 ea 08/04/20 09/01/20 Unknown heparin (porcine) 20,000 unit/mL 10,000 unit SUBCUT Q12H 08/18/20 09/06/20 09/05/20 10:00 injection solution Active Medications Generic Name Dose Route Start Last Admin Trade Name Freq PRN Reason Stop Dose Admin Oxytocin 30 units in 500 mls @ 9 mls/hr 09/06/20 08:41 09/06/20 11:20 Pitocin IV 09/08/20 08:40 0.54 units/hr .Q24H PRN 9 mls/hr Labor Induction/Augmentation Titration Protocol 0.54 UNITS/HR Lactated Ringer's 1,000 mls @ 125 mls/hr 09/06/20 08:41 09/06/20 12:39 Lr IV 09/08/20 08:40 125 mls/hr .Q8H PRN Administration L&D Protocol Protocol NPO Date Last Intake of Fluids: 09/06/20 Time Last Intake of Fluids: 12:00 Date Last Intake of Solids: 09/06/20 Time Last Intake of Solids: 07:30 Past Medical History Medical History Dysfunctional uterine bleeding Herniated lumbar intervertebral disc Heterozygous factor V Leiden mutation History of pulmonary embolus (PE) Morbid obesity Pulmonary nodule, left Spontaneous vaginal delivery [facility] 06/12/05, and 03/15/19 [facility] Superficial thrombophlebitis Thrombophlebitis of superficial veins of right lower extremity Exercise / Class Metabolic Activity II 4-5 Yardwork/Stairs/Walk up hill Past Family History Family History Mother Breast cancer Hypertension Stroke Grandmother (Maternal) Breast cancer Sister Cervical cancer Graves disease Ovarian cancer Father Hypertension No family history of bleeding disorder Grandfather (Maternal) No problems noted. Other Arthritis Cancer Denies family history of Prostate cancer Heart disease Allergies Myocardial infarction Colorectal cancer Asthma Past Surgical History Surgical History History of surgery on wrist S/P wrist surgery Past Anesthesia History No Hx of Anesthesia Complications and No Family Hx of Anesthesia Complications History of PONV No Hx of PONV and No Hx of Motion Sickness Social History Smoking Status: Never smoker Hx Alcohol Use: No Hx Substance Use: No substance use type: does not use Review of Systems no chest pain or sob Physical Exam Vital Signs Last Vital Signs Temp 36.8 C 09/06/20 08:00 Pulse 100 H 09/06/20 12:42 Resp 18 09/06/20 08:00 BP 120/77 09/06/20 12:13 Pulse Ox 100 09/06/20 12:42 ENMT Mouth: no TMJ abnormality Thyromental Distance: > or= 3.5 Finger Breadths Mallampati Class: II Neck normal visual inspection Respiratory normal respiratory effort Auscultation: lungs clear to auscultation bilaterally Cardiovascular Rate/Rhythm: regular rate and regular rhythm Musculoskeletal Spine: normal cervical ROM Neurologic moves all extremities Psychiatric Orientation: alert and oriented x 3 Testing Laboratory Results 09/06/20 08:57 APTT 25.1 Seconds (21.0-31.0) 09/06/20 08:57
[2020-09-06] MEDS: ePHEDrine sulfate 50 MG/ML AMP IV PRN ×2 (15:19→15:25)
[2020-09-06] MEDS ORDERED: ACETAMINOPHEN 325 MG TAB PO PRN (18:11)
--- NOTE | 2020-09-06 18:14 | Labor Progress Brief Note ---
Date of Service September 06, 2020 Subjective Patient remains comfortable with epidural. Assessment & Plan (1) Obesity affecting in third trimester: Titrate pitocin up, goal MVU 200-250. Continue SCD's which are on and working. Admission and Anticipated Discharge Date Admission Date: September 06, 2020 Physical Exam Physical Exam: Cervix very similar to prior exam; 4cm, maybe 4.5; still 50% and -2. IUPC placed after verbal consent obtained. Pit @ 19; will titrate upwards to MVU 200-250. FHT Cat 1 [place] Q3-4. First contraction with MVU approx 35. Results & Data ([facility]) Vital Signs (Past 12 Hours) Vital Signs Temp Pulse Resp BP Pulse Ox 09/06/20 18:07 116 H 98 09/06/20 18:02 110 H 98 09/06/20 18:00 20 09/06/20 17:57 117 H 98 09/06/20 17:56 126/55 L 09/06/20 17:52 106 H 97 09/06/20 17:47 109 H 98 09/06/20 17:45 20 09/06/20 17:42 112 H 97 09/06/20 17:41 105 H 125/70 09/06/20 17:37 100 H 95 09/06/20 17:32 102 H 96 09/06/20 17:30 20 09/06/20 17:27 106 H 98 09/06/20 17:26 100 H 114/70 09/06/20 17:22 104 H 97 09/06/20 17:17 102 H 96 09/06/20 17:15 18 09/06/20 17:12 106 H 98 09/06/20 17:11 101 H 113/65 09/06/20 17:07 99 H 97 09/06/20 17:02 99 H 99 09/06/20 17:00 98.1 F 20 09/06/20 16:57 114 H 100 09/06/20 16:55 104 H 115/58 L 09/06/20 16:52 97 H 100 09/06/20 16:49 97 H 84/53 L 09/06/20 16:47 98 H 100 09/06/20 16:45 20 09/06/20 16:44 96 H 91/56 L 09/06/20 16:42 103 H 100 09/06/20 16:40 97 H 85/52 L 09/06/20 16:37 103 H 100 09/06/20 16:35 96 H 89/50 L 09/06/20 16:32 91 H 100 09/06/20 16:31 98 H 94/52 L 09/06/20 16:27 101 H 100 09/06/20 16:26 96 H 96/55 L 09/06/20 16:22 94 H 100 09/06/20 16:21 93 H 98/56 L 09/06/20 16:17 97 H 103/58 L 99 09/06/20 16:15 20 09/06/20 16:12 91 H 99 09/06/20 16:10 97 H 102/52 L 09/06/20 16:08 97 H 119/62 09/06/20 16:07 99 H 99 09/06/20 16:02 94 H 100 09/06/20 16:00 20 09/06/20 15:57 94 H 98/54 L 100 09/06/20 15:52 94 H 100 09/06/20 15:50 95 H 94/52 L 09/06/20 15:47 95 H 91/54 L 100 09/06/20 15:45 20 09/06/20 15:42 95 H 100 09/06/20 15:41 93 H 98/54 L 09/06/20 15:37 94 H 100 09/06/20 15:34 93 H 104/51 L 09/06/20 15:32 96 H 87/53 L 100 09/06/20 15:30 89 20 91/50 L 09/06/20 15:28 89 96/69 L 09/06/20 15:27 90 100 09/06/20 15:26 85 91/53 L 09/06/20 15:24 84 87/53 L 09/06/20 15:22 102 H 92/50 L 100 09/06/20 15:20 93 H 87/51 L 09/06/20 15:17 96 H 84/49 L 99 09/06/20 15:15 88 20 83/50 L 09/06/20 15:12 94 H 99 09/06/20 15:07 95 H 99 09/06/20 15:02 107 H 100 09/06/20 15:00 97.9 F 20 09/06/20 14:59 94 H 106/58 L 09/06/20 14:57 89 96 09/06/20 14:52 90 96 09/06/20 14:47 97 H 97 09/06/20 14:45 103 H 20 107/60 09/06/20 14:42 104 H 98 09/06/20 14:37 95 H 99 09/06/20 14:32 95 H 97 09/06/20 14:30 99 H 20 107/64 09/06/20 14:27 96 H 99 09/06/20 14:22 97 H 97 09/06/20 14:17 96 H 96 09/06/20 14:15 94 H 20 114/68 09/06/20 14:12 91 H 97 09/06/20 14:07 94 H 100 09/06/20 14:02 96 H 98 09/06/20 14:00 20 09/06/20 13:58 94 H 118/66 09/06/20 13:57 93 H 99 09/06/20 13:54 98.1 F 102 H 20 123/64 09/06/20 13:52 97 H 100 09/06/20 13:50 95 H 105/68 09/06/20 13:47 95 H 100 09/06/20 13:45 20 09/06/20 13:44 92 H 101/62 09/06/20 13:42 97 H 100 09/06/20 13:39 99 H 117/61 09/06/20 13:37 97 H 100 09/06/20 13:34 96 H 106/64 09/06/20 13:32 101 H 100 09/06/20 13:30 18 09/06/20 13:29 97 H 109/63 09/06/20 13:27 92 H 100 09/06/20 13:24 97 H 116/68 09/06/20 13:22 102 H 100 09/06/20 13:17 100 H 99 09/06/20 13:15 20 09/06/20 13:14 105 H 126/67 09/06/20 13:12 101 H 99 09/06/20 13:07 99 H 111/64 99 09/06/20 13:06 109 H 105/60 09/06/20 13:03 102 H 117/58 L 09/06/20 13:02 101 H 100 09/06/20 13:01 101 H 121/63 09/06/20 13:00 97 H 20 123/63 09/06/20 12:58 96 H 135/70 09/06/20 12:57 97 H 100 09/06/20 12:52 110 H 100 09/06/20 12:47 109 H 99 09/06/20 12:42 100 H 100 09/06/20 12:37 96 H 100 09/06/20 12:32 93 H 100 09/06/20 12:27 99 H 100 09/06/20 12:22 99 H 100 09/06/20 12:17 93 H 100 09/06/20 12:13 92 H 120/77 09/06/20 12:12 96 H 100 09/06/20 12:00 97.7 F 20 09/06/20 11:11 97 H 111/67 09/06/20 10:11 106 H 119/62 09/06/20 09:11 103 H 115/70 09/06/20 08:00 98.2 F 120 H 18 130/67 09/06/20 07:58 98.2 F 120 H 18 130/67 Coding Level of Care Code None Diagnoses Obesity affecting in third trimester O99.213
[2020-09-06] MEDS ORDERED: ACETAMINOPHEN 325 MG TAB ONE (18:21)
--- NOTE | 2020-09-06 22:36 | Delivery Summary ---
Vaginal Delivery Summary Date of Service September 06, 2020 Vaginal Delivery Summary DIAGNOSES: 1. [place] intrauterine at 39w1d gestation. 2. Induction of Labor. 3. Group B Streptococcus Neg. 4. History of PE, on anticoagulation 5. Maternal obesity PROCEDURE: Spontaneous vaginal delivery without laceration. SURGEON: Suzy Charles MD. FIXED ROUTE BUS OPERATOR: None. ESTIMATED BLOOD LOSS: 350 mL. COMPLICATIONS: None. PLACENTA: Spontaneous and intact with a 3-vessel cord. DISPOSITION: Stable to labor and delivery. DESCRIPTION: The patient pushed well and brought the head to in THANH position. The 's head was allowed to deliver with contraction force and no further active pushing, with the perineum protected during this time. The shoulders delivered easily with a maternal pushing effort. There was no nuchal cord. The left shoulder was anterior. The shoulders and body delivered without any difficulty, and the infant was placed on the maternal abdomen. It was vigorous and moving all extremities, and making respiratory efforts. The cord was doubly clamped by the MD and then cut by the FOB. The placenta delivered spontaneously and was noted to be intact and with a 3VC. The cervix, vagina and perineum were examined and were found to be without defect requiring repair. The fundus was firm and lochia minimal immediately after delivery. [facility] Vaginal Delivery Charge Vaginal Delivery Codes: 68999 global code for the antepartum, delivery, and post-
[2020-09-06] MEDS ORDERED: oxyCODONE/ACETAMINOPHEN 5mg/325mg TAB PO PRN (22:42)
[2020-09-06] MEDS ORDERED: SUPERCREAM 0.870% 15 GM JAR EXT PRN (22:42)
[2020-09-06] MEDS ORDERED: HYDROCORTISONE ACETATE 25 MG SUPP PR PRN (22:42)
[2020-09-06] MEDS ORDERED: BENZOCAINE 20% AER SPR 82.5 GM CAN EXT PRN (22:42)
[2020-09-06] MEDS ORDERED: DIPHTHERIA/TETANUS/PERTUSSIS 0.5 ML SYR/VIAL IM ONE (22:42)
[2020-09-06] MEDS ORDERED: IBUPROFEN 600 MG TAB PO PRN (22:42)
[2020-09-07] MEDS: ACETAMINOPHEN 325 MG TAB PO PRN ×3 (01:07→17:36)
--- NOTE | 2020-09-07 05:41 | Obstetrical Progress Note ---
Date of Service September 07, 2020 Assessment & Plan (1) normal course: S/p IOL --> normal vaginal delivery, Day 1 - Feels well today. Eating well, voiding well, ambulating well. - Pain well-controlled with ibuprofen 600mg Q4H PRN. - Vital signs reviewed and WNL. - Hemoglobin reviewed. 10.8 --> 9.9 (today). - Blood Type: B+, antibody negative, GBS negative, Rubella Immune, COVID-19 negative - Continue routine care: encourage ambulation, monitor and control pain with Motrin PRN, continue regular OB diet, monitor lochia - Encourage breast feeding. - After discharge, will have 6-wk follow-up with Dr. Charles (2) Factor V Leiden: Heterozygous, with history of unprovoked DVT/PE. Was anti-coagulated on Lovenox 140mg SQ BID during and transitioned to Heparin 69449 units SQ BID at 36 weeks. - Anti-coagulation clinic recommendations as of 09/06: VTE prophylaxis with enoxaparin 40 mg BID may be resumed 4 hours following removal of the epidural catheter, provided surgical hemostasis is achieved. Plan to advance to treatment dose. - Will re-start Lovenox at 40mg SQ BID today, hold first dose until 4 hours after epidural catheter is removed - Will defer to anti-coagulation clinic for titrating to full Lovenox treatment dose Admission and Anticipated Discharge Date Admission Date: September 06, 2020 Supervising Physician Co-Signing Physician Notes Resident Physician Supervision Note: I interviewed and examined the patient. Discussed with Dr. Santos and agree with findings and plan as documented in the note. Any exceptions or clarifications are listed here: Patient doing well PPD#1 and will plan to go home in the AM on PPD#2 based on discussion with her this morning. Documented By: Suzy Charles MD, FACOG Subjective HPI Tatiana Souza is a 35 y/o female who is PPD 1 after IOL --> vaginal delivery at 39w1d. She reports feeling well overall this morning. No abdominal cramping and minimal pain well managed on analgesics. Voiding well. Tolerating meals overnight without difficulty. Patient has been able to ambulate some. passing gas and no bowel movement. Has persistent lochia with some improvement this morning. Currently . Review of Systems Review of Systems: ROS Denies fever or chills. Denies shortness of breath or cough. Denies chest pain. Denies breast pain. Denies dysuria. Denies leg pain or leg swelling. Physical Exam Physical Exam: PE General: Alert, oriented. No acute distress. Cardiac: Regular rate and rhythm. No murmurs. Respiratory: Clear to auscultation bilaterally a/p, no wheezes/rales/rhonchi. No increased work of breathing. Symmetrical chest rise. No respiratory distress. Abdomen: Soft, nontender, nondistended. Bowel sounds present. Uterus: Uterine fundus firm, palpable 1 cm below umbilicus. Lower Extremities: No lower extremity edema or swelling. No deep calf pain. Emily's negative bilaterally. Results & Data ([facility]) Vital Signs (Past 12 Hours) Vital Signs Temp Pulse Pulse Resp BP BP Pulse Ox 09/07/20 04:30 37 C 84 18 118/78 99 09/07/20 01:00 37 C 109 H 18 126/79 98 09/07/20 00:36 36.9 C 110 H 18 106/80 09/07/20 00:21 101 H 98/63 L 09/07/20 00:07 112 H 113/64 09/06/20 23:51 110 H 104/68 09/06/20 23:36 102 H 18 108/67 09/06/20 23:22 99 H 18 104/68 09/06/20 23:07 96 H 18 112/58 L 09/06/20 22:52 105 H 18 137/72 09/06/20 22:37 36.8 C 101 H 18 127/75 09/06/20 22:27 110 H 100 09/06/20 22:26 102 H 115/75 09/06/20 22:22 109 H 84 L 09/06/20 22:19 114 H 93 09/06/20 22:17 113 H 100 09/06/20 22:12 97 H 111/73 100 09/06/20 22:07 90 100 09/06/20 22:02 98 H 100 09/06/20 21:57 96 H 118/83 100 09/06/20 21:52 103 H 99 09/06/20 21:47 107 H 100 09/06/20 21:42 104 H 100 09/06/20 21:41 94 H 124/77 09/06/20 21:37 111 H 100 09/06/20 21:32 92 H 100 09/06/20 21:27 96 H 100 09/06/20 21:26 94 H 101/59 L 09/06/20 21:22 96 H 100 09/06/20 21:17 94 H 100 09/06/20 21:12 89 100 09/06/20 21:11 101 H 103/58 L 09/06/20 21:07 90 100 09/06/20 21:02 115 H 100 09/06/20 20:57 109 H 100 09/06/20 20:56 101 H 119/74 09/06/20 20:52 98 H 100 09/06/20 20:47 103 H 100 09/06/20 20:45 20 09/06/20 20:42 101 H 100 09/06/20 20:41 96 H 123/71 09/06/20 20:37 90 100 09/06/20 20:32 99 H 100 09/06/20 20:30 20 09/06/20 20:27 110 H 98 09/06/20 20:26 104 H 115/75 09/06/20 20:22 107 H 99 09/06/20 20:17 104 H 100 09/06/20 20:15 20 09/06/20 20:12 107 H 99 09/06/20 20:11 106 H 114/71 09/06/20 20:07 110 H 100 09/06/20 20:02 104 H 100 09/06/20 20:00 36.4 C L 20 09/06/20 19:57 101 H 99 09/06/20 19:56 98 H 125/70 09/06/20 19:52 115 H 100 09/06/20 19:47 99 H 100 09/06/20 19:45 20 09/06/20 19:42 96 H 99 09/06/20 19:41 98 H 109/57 L 09/06/20 19:37 96 H 98 09/06/20 19:32 98 H 99 09/06/20 19:30 20 09/06/20 19:27 112 H 120/63 99 09/06/20 19:26 97 H 93 09/06/20 19:22 99 H 97 09/06/20 19:19 90 94 09/06/20 19:17 104 H 98 09/06/20 19:15 20 09/06/20 19:12 105 H 113/60 99 09/06/20 19:07 103 H 98 09/06/20 19:02 126 H 99 09/06/20 19:00 36.7 C 20 09/06/20 18:57 110 H 96 09/06/20 18:56 105 H 123/70 09/06/20 18:52 109 H 98 09/06/20 18:47 110 H 96 09/06/20 18:46 106 H 94 09/06/20 18:45 20 09/06/20 18:42 101 H 98 09/06/20 18:41 105 H 126/69 09/06/20 18:37 103 H 97 09/06/20 18:32 118 H 99 09/06/20 18:30 20 09/06/20 18:27 105 H 128/65 98 09/06/20 18:22 108 H 98 09/06/20 18:17 107 H 97 09/06/20 18:15 20 09/06/20 18:12 107 H 97 09/06/20 18:11 113 H 116/71 09/06/20 18:07 116 H 98 09/06/20 18:06 20 09/06/20 18:02 110 H 98 09/06/20 18:00 20 09/06/20 17:57 117 H 98 09/06/20 17:56 126/55 L 09/06/20 17:52 106 H 97 09/06/20 17:47 109 H 98 09/06/20 17:45 20 09/06/20 17:42 112 H 97 09/06/20 17:41 105 H 125/70 09/06/20 17:37 100 H 95 Resident Activity Tracking Resident Involvement: Resident Care Provided Care Provided: Adult Hospital Medicine
[2020-09-07 06:43] LABS: Hematocrit (blood only) 29.5 % (37-47); Hemoglobin 9.9 g/dL (12.0-16.0); Mean Corpuscular Hemoglobin 27.8 pg (25-34); Mean Corpuscular Hgb Conc 33.6 g/dL (32-36); Mean Corpuscular Volume 82.9 fL (80-100); Mean Platelet Volume 11.5 fL (7.4-10.4); Platelet Count 152 K/uL (130-400); RDW Coefficient of Variation 13.5 % (11.5-14.5); RDW Standard Deviation 41.1 fL (36.4-46.3); Red Blood Count 3.56 M/uL (4.2-5.4); White Blood Count 9.58 K/uL (4.8-10.8)
--- NOTE | 2020-09-07 07:08 | Anesthesia Procedure Note ---
Date of Service September 07, 2020 Anesthesia Post Epidural Note Vital Signs Vital Signs: Temp Pulse Resp BP Pulse Ox 98.6 F 84 18 118/78 99 09/07/20 04:30 09/07/20 04:30 09/07/20 04:30 09/07/20 04:30 09/07/20 04:30 Pain Intensity Generalized: Pain Intensity: 5 Notes Mental Status: alert / awake / arousable and participated in evaluation Nausea / Vomiting: adequately controlled Pain: adequately controlled Airway Patency, RR, SpO2: stable & adequate BP & HR: stable & adequate Hydration State: stable & adequate Neuraxial Anesthesia: was administered and sensory block is resolving Anesthetic Complications: no major complications apparent and Pt Satisfied with anesthetic care Epidural: Removed without complications and With tip intact
[2020-09-07 07:15] LABS: Creatinine Clr Calc Pharmacy 246.9 ml/min; Est GFR (African American) 147.3; Est GFR (Non-African American) 127.1
[2020-09-07] MEDS: DOCUSATE SODIUM 100 MG CAP PO SCH ×2 (08:22→20:55)
[2020-09-07] MEDS: PRENATAL VITAMIN 1 TAB PO SCH (08:22)
[2020-09-07] MEDS ORDERED: ENOXAPARIN INJ 40 MG/0.4 ML SYR SQ SCH ×3 (09:00→11:00)
[2020-09-07] MEDS ORDERED: ONDANSETRON 4 MG OD TAB PO PRN (10:13)
--- NOTE | 2020-09-07 13:16 | Consultation ---
Date of Consultation September 07, 2020 Assessment & Plan (1) Anticoagulated: (2) History of pulmonary embolus (PE): The patient may begin full strength anticoagulation at 1 mg/kg q12 hours beginning 9 PM this evening (which is >6 hours post neuraxial catheter removal per [facility] Neuraxial Guidelines). Her last weight documented in the computer is 139.7 kg, and the dose would be 140 mg q12 hours based on this weight. Please verify weight prior to order. Present on Admission?: Yes History of Present Illness Attending Physician: Suzy Charles MD Allergies Allergy/AdvReac Type Severity Reaction Status Date / Time No Known Drug Allergies Allergy Unknown Verified 09/06/20 08:01 Home Medications Medication Instructions Recorded Confirmed Type prenat.vits,ayala,aat-pftn-fftpp 1 tab PO DAILY 02/27/20 09/06/20 History breast pump #1 ea 06/23/20 09/01/20 Rx insulin syringes (disposable) 1 mL #100 ea 08/04/20 09/01/20 Rx heparin (porcine) 20,000 unit/mL 10,000 unit SUBCUT Q12H 08/18/20 09/06/20 History injection solution Patient History Medical History Dysfunctional uterine bleeding Herniated lumbar intervertebral disc Heterozygous factor V Leiden mutation History of pulmonary embolus (PE) Morbid obesity Pulmonary nodule, left Spontaneous vaginal delivery [facility] 06/12/05, and 03/15/19 [facility] Superficial thrombophlebitis Thrombophlebitis of superficial veins of right lower extremity Surgical History History of surgery on wrist S/P wrist surgery Family History Mother Breast cancer Hypertension Stroke Grandmother (Maternal) Breast cancer Sister Cervical cancer Graves disease Ovarian cancer Father Hypertension No family history of bleeding disorder Grandfather (Maternal) No problems noted. 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
[2020-09-07] MEDS ORDERED: ENOXAPARIN 150 MG/ML SYR SQ SCH (23:00)
--- NOTE | 2020-09-08 05:49 | Obstetrical Progress Note ---
Date of Service September 08, 2020 Assessment & Plan (1) normal course: S/p Day 2 - Feels well today. Eating well, voiding well, ambulating well. - Pain well-controlled with ibuprofen 600mg Q4H PRN. - Vital signs reviewed and WNL. - Hemoglobin reviewed. 10.8 --> 9.9 -- 9.5 (today). - Blood Type: B+, antibody negative, GBS negative, Rubella Immune, COVID-19 negative - Continue routine care: encourage ambulation, monitor and control pain with Motrin PRN, continue regular OB diet, monitor lochia - Encourage breast feeding. - Pt counselled on discharge instructions - After discharge, will have 6-wk follow-up with Dr. Charles (2) Factor V Leiden: Heterozygous, with history of unprovoked DVT/PE. Was anti-coagulated on Lovenox 140mg SQ BID during and transitioned to Heparin 12946 units SQ BID at 36 weeks. - Anti-coagulation clinic recommendations as of 09/06: VTE prophylaxis with enoxaparin 40 mg BID may be resumed 4 hours following removal of the epidural catheter, provided surgical hemostasis is achieved. Plan to advance to treatment dose starting at 1/5 PM dose - Re-started Lovenox at 40mg for 1/5 AM dose, increased to 140mg BID starting at 1/5 PM dose - F/u with anti-coagulation clinic after discharge for further eval/management Admission and Anticipated Discharge Date Admission Date: September 06, 2020 Supervising Physician Co-Signing Physician Notes Resident Physician Supervision Note: I was present with [Name of resident] during the history and exam. I discussed the case with the resident and agree with the findings and plan as documented in the note. Any exceptions or clarifications are listed here: [None] Documented By: Genaro Salcido MD, FACOG Subjective HPI Tatiana Souza is a 35 y/o female who is PPD 2 after at 39w1d. She reports feeling well overall this morning. No abdominal cramping and minimal pain well managed on analgesics. Voiding well. Tolerating meals overnight without difficulty. Patient has been able to ambulate some. passing gas and no bowel movement. Has persistent lochia with some improvement this morning. Currently . Review of Systems Review of Systems: ROS Denies fever or chills. Denies shortness of breath or cough. Denies chest pain. Denies breast pain. Denies dysuria. Denies leg pain or leg swelling. Physical Exam Physical Exam: PE General: Alert, oriented. No acute distress. Cardiac: Regular rate and rhythm. No murmurs. Respiratory: Clear to auscultation bilaterally a/p, no wheezes/rales/rhonchi. No increased work of breathing. Symmetrical chest rise. No respiratory distress. Abdomen: Soft, nontender, nondistended. Bowel sounds present. Uterus: Uterine fundus firm, palpable 2 cm below umbilicus. Lower Extremities: No lower extremity edema or swelling. No deep calf pain. Emily's negative bilaterally. Results & Data ([facility]) Vital Signs (Past 12 Hours) Vital Signs Temp Pulse Resp BP Pulse Ox 09/07/20 23:20 36.8 C 89 18 106/76 100 09/07/20 20:50 37.0 C 110 H 16 111/75 96 Resident Activity Tracking Resident Involvement: Resident Care Provided Care Provided: Adult Hospital Medicine
[2020-09-08 06:14] LABS: Hematocrit (blood only) 28.5 % (37-47); Hemoglobin 9.5 g/dL (12.0-16.0)
[2020-09-08] MEDS: DOCUSATE SODIUM 100 MG CAP PO SCH (08:37)
[2020-09-08] MEDS: PRENATAL VITAMIN 1 TAB PO SCH (08:37)
[2020-09-08] MEDS: ACETAMINOPHEN 325 MG TAB PO PRN (08:37)
== END 2020-09-08 10:30 | disposition home or self-care (01) | DRG 806 ==
LOC: 4S1 07:49 → 4S2 09-07 01:10